=== PATIENT | male | born 1990 | race African-American/Black ===

== ENCOUNTER 2020-01-31 23:40 | Emergency (ER) | payer OTHER ==
[~2020-01-31] VITALS: Ht 167.6 cm; Wt 79.0 kg
[2020-02-01 05:20] VITALS: BP 129/78
== END 2020-02-01 05:30 | disposition home or self-care (01) ==
LOC: ER 23:40
DX: S09.90XA Unspecified injury of head, initial encounter (principal); I49.9 Cardiac arrhythmia, unspecified; V73.0 Driver of bus injured in collision with car, pick-up truck or van in nontraffic accident; Y93.89 Activity, other specified; Y92.89 Other specified places as the place of occurrence of the external cause; Y99.8 Other external cause status
CPT/HCPCS: 93005; 99284